=== PATIENT | female | born 2000 | race Caucasian/White ===

== ENCOUNTER 2020-04-07 16:08 | Emergency (ER) | payer BC ==
[2020-04-07] MEDS ORDERED: EPINEPHRINE INJ/PF 1 MG/1 ML AMPULE IM ONE ×2 (16:31→17:22)
[2020-04-07] MEDS ORDERED: METHYLPREDNISOLONE INJ 125 MG/2 ML SDV IV ONE (16:31)
[2020-04-07] MEDS ORDERED: DIPHENHYDRAMINE HCL 50 MG/ML VIAL IV ONE ×2 (16:32→16:59)
[2020-04-07] MEDS ORDERED: FAMOTIDINE INJ/PF 20 MG/2 ML SDV IV ONE ×3 (16:32→16:58)
--- NOTE | 2020-04-07 16:34 | ER Document Report ---
ED Medical Screen (RME) - General Chief Complaint: Allergic Reaction Stated Complaint: POSSIBLE ALLERGIC REACTION/BITE Time Seen by Provider: 04/07/20 16:31 Mode of Arrival: Ambulatory Information source: Patient Notes: 20-year-old female presented to ED for allergic reaction. She states she was bit on her right foot and she is having rash to her entire body with swelling and rash to her face. She states she is getting a little short of breath and tight in her throat. She was sent back immediately to be treated. I did put in the orders for epinephrine Solu-Medrol Pepcid and Benadryl IV. I have greeted and performed a rapid initial assessment of this patient. A comprehensive ED assessment and evaluation of the patient, analysis of test results and completion of medical decision making process will be conducted by an additional ED providers.
[2020-04-07] MEDS ORDERED: NORMAL SALINE 1000 ML 1,000 ML IV ONE (16:59)
--- NOTE | 2020-04-07 18:02 | ER Document Report ---
ED General - General Mode of Arrival: Ambulatory <OSCAR TAYLOR - Last Filed: 04/07/20 18:30> <SHELLIE PERALTA - Last Filed: 04/07/20 20:44> - General Chief Complaint: Allergic Reaction Stated Complaint: POSSIBLE ALLERGIC REACTION/BITE Time Seen by Provider: 04/07/20 16:31 - HPI Notes: Chief complaint: Allergic reaction History of present illness: 20-year-old female presented to ED for allergic reaction. The patient was outdoors at her home placing a yard flag. She was wearing open sandals and felt stinging in her foot followed by extreme itching and over the next few minutes noticed the development of a red rash. She did not see what bit her but believes this to be an insect. She specifically denies seeing a snake in the area. She has subsequently developed a generalized itchy rash and now has a sensation of tightness in her throat. Mild shortness of breath. She denies any prior history of significant allergic reactions. Patient's prior medical history is remarkable only for longstanding chronic/recurrent migraine headaches. Multiple allergies identified including metoclopramide, prochlorperazine, sulfa and cephalosporin antibiotics. (OSCAR TAYLOR) - Related Data Allergies/Adverse Reactions: metoclopramide [From Reglan] Allergy (Verified 04/07/20 16:34) prochlorperazine [From Compazine] Allergy (Verified 04/07/20 16:34) Sulfa (Sulfonamide Antibiotics) Allergy (Verified 04/07/20 16:34) Past Medical History - General Information source: Patient, Relative - Social History Smoking Status: Never Smoker Chew tobacco use (# tins/day): No Frequency of alcohol use: None Drug Abuse: None Neurological Medical History: Reports: Hx Migraine Past Surgical History: Reports: Hx Orthopedic Surgery <OSCAR TAYLOR - Last Filed: 04/07/20 18:30> - Social History Family History: Reviewed & Not Pertinent <SHELLIE PERALTA - Last Filed: 04/07/20 20:44> Review of Systems <OSCAR TAYLOR - Last Filed: 04/07/20 18:30> - Review of Systems Notes: Constitutional: Negative for fever. HENT: Negative for sore throat. Eyes: Negative for visual changes. Cardiovascular: Negative for chest pain. Respiratory: As per HPI. Gastrointestinal: Negative for abdominal pain, vomiting or diarrhea. Genitourinary: Negative for dysuria. Musculoskeletal: Negative for back pain. Skin: As per HPI. Neurological: Negative for headaches, weakness or numbness. 10 point ROS negative except as marked above and in HPI. (OSCAR TAYLOR) Physical Exam <OSCAR TAYLRO - Last Filed: 04/07/20 18:30> - Vital signs Vitals: Temp Pulse BP Pulse Ox 98.3 F 73 126/78 H 100 04/07/20 16:29 04/07/20 16:29 04/07/20 16:29 04/07/20 16:29 - Notes Notes: GENERAL: Slender female approximately stated age who appears mildly tremulous and anxious. SKIN: Patient has a 3.5 x 5.0 cm well demarcated area of erythema over the dorsum of the right foot. I do not see any breaks in the skin. Patient complains of this area is extremely itchy. She has a faint generalized urticarial rash over the entire body. HEAD: Normocephalic atraumatic. EYES: PERRLA. EOMI. Conjunctivae and sclerae clear. EARS: CANALS AND TMS CLEAR. NOSE: CLEAR. Patient is noted to have some erythema over the tip of her nose with some mild soft tissue swelling here as well. MOUTH: Moist mucosa. No swelling of lips. No swelling of the tongue. Good dentition. No stridor or edema. No drooling. Throat: No swelling of the uvula. Handling secretions normally. No hoarseness noted. NECK: Supple. No masses or thyromegaly. No adenopathy. Carotids 2+ without bruits. No JVD. BACK: Symmetrical without tenderness. CHEST: Respirations unlabored. Breath sounds clear and symmetrical. HEART: Regular rhythm. No murmur gallop or rub. ABDOMEN: Soft nontender without masses, organomegaly or rebound. Bowel sounds normally active. No bruits. GENITALIA: Deferred. EXTREMITIES: 1+ edema right pretibial area. No edema. No calf tenderness. Cap refill less than 1.5 seconds. Dorsalis pedis and posterior tibial pulses 3+ and symmetrical. NEUROLOGICAL: GCS 15. Alert and oriented x3. Fluent speech. Cranial nerves II through XII intact. Sensorimotor and cerebellar normal. Normal tone. PSYCHIATRIC: Appropriate affect. (OSCAR TAYLOR) Course <OSCAR TAYLOR - Last Filed: 04/07/20 18:30> <SHELLIE PERALTA - Last Filed: 04/07/20 20:44> - Re-evaluation Re-evalutation: 04/07/20 18:30 Patient was placed on cardiac monitoring given low-flow supplemental oxygen along with bolus of normal saline IV. She received IM epinephrine x2 at 30- minute intervals. She also received IV Solu-Medrol, IV Benadryl and IV Pepcid. Her rash is gradually shown improvement and her sensation of tightness in the throat and anxiety have subsided. She still has some redness over the dorsum of the foot at the site of the insect bite. I believe the patient will require a long period of observation in the emergency department. Care of this patient is turned over to Dr. Brandin Philippe at 1845 hrs. with final disposition pending. (OSCAR TAYLOR) 04/07/20 19:13 Patient was actually signed out to Dr. Shellie Peralta, not Dr. Alcantar, patient is rechecked at this time, still has an urticarial lesion on the dorsal aspect of her right foot, no other hives are noted. No difficulty breathing, no nausea, no vomiting, no difficulty swallowing. Patient will be observed for 3 hours after receiving the last dose of epinephrine and if she is still asymptomatic will be discharged home. 04/07/20 20:41 Patient rechecked again, persistent unchanged urticarial lesion to the dorsal aspect of the right foot, no foreign body noted. No other urticarial lesions noted on her body, no respiratory distress, lungs are clear. Patient will be discharged to home, given prescription for EpiPen, counseled on use of Benadryl and Pepcid. (SHELLIE PERALTA) - Vital Signs Vital signs: Temp Pulse Resp BP Pulse Ox 98.3 F 73 16 136/75 H 100 04/07/20 16:29 04/07/20 16:29 04/07/20 20:01 04/07/20 20:01 04/07/20 20:01 Critical Care Note - Critical Care Note Total time excluding time spent on procedures (mins): 35 - Treatment for anaphylaxis including IV, O2, monitor, IV normal saline bolus, IM epinephrine, IV H1 and H2 zander and IV Solu-Medrol. <OSCAR TAYLOR - Last Filed: 04/07/20 18:30> Discharge <OSCAR TAYLOR - Last Filed: 04/07/20 18:30> <NAISHELLIE - Last Filed: 04/07/20 20:44> - Discharge Clinical Impression: Anaphylactic reaction Qualifiers: Encounter type: initial encounter Qualified Code(s): T78.2XXA - Anaphylactic shock, unspecified, initial encounter Condition: Stable Disposition: HOME, SELF-CARE Additional Instructions: Acute Allergic Reaction Your symptoms are due to an allergic reaction. Allergy can cause hives, swelling of the hands, feet, and face, hoarseness, and difficulty swallowing or breathing. It may be due to exposure to medication, animal dander, foods, infection, or insect bites. Medication is a common cause, even when prior use of this same medication caused no problems. Acute treatment may include adrenalin and antihistamines. Usually, the specific allergic agent can't be identified unless repeated episodes occur. Home treatment includes the following: (1) Stop any suspicious medications. This will be discussed with you. (2) Oral antihistamines for the next four to five days. Example, diphenhydramine (Benadryl) 1-2 tab I would really enjoy this and is a lot more if you are wearing your doctors to start this at the same time lets every four hours. (3) You may also use cimetidine (Tagamet), or famotidine (Pepcid) every four hours if diphenhydramine is not controlling itching and hives. (4) Avoid aspirin until the hives completely disappear. (5) Avoid hot baths or showers until the hives are completely gone. Call the doctor if faintness, difficulty swallowing, tightness in the chest, or wheezing occurs. Prescriptions: Epinephrine [Epipen] 0.3 mg IJ ONCE PRN #1 auto.injct PRN Reason:
[2020-04-07 21:01] VITALS: BP 125/58
== END 2020-04-07 21:02 | disposition home or self-care (01) ==
LOC: ER 16:08
DX: T78.2XXA Anaphylactic shock, unspecified, initial encounter (principal); X58.XXXA Exposure to other specified factors, initial encounter; S90.869A Insect bite (nonvenomous), unspecified foot, initial encounter; W57.XXXA Bitten or stung by nonvenomous insect and other nonvenomous arthropods, initial encounter; L50.9 Urticaria, unspecified; Z88.8 Allergy status to other drugs, medicaments and biological substances; Z88.2 Allergy status to sulfonamides
CPT/HCPCS: 96376; 99284; 96372; 96361; 96374; 96375; J1200; J0171; J2930; J7030; S0028

== ENCOUNTER 2020-09-10 12:04 | Emergency (ER) | payer BC ==
[2020-09-10 13:31] LABS: ABSOLUTE LYMPHOCYTES (AUTO) 1.6 10^3/uL (0.5-4.7); ABSOLUTE MONOCYTES (AUTO) 0.5 10^3/uL (0.1-1.4); ABSOLUTE NEUT (AUTO) 5.2 10^3/uL (1.7-8.2); BASOPHILS % (AUTO) 0.5 % (0-2); EOSINOPHILS % (AUTO) 0.5 % (0-6); HEMATOCRIT 44.2 % (36.0-47.0); HEMOGLOBIN 15.1 g/dL (12.0-15.5); LYMPHOCYTES % (AUTO) 21.8 % (13-45); MEAN CORPUSCULAR HEMOGLOBIN 32.4 pg (27.0-33.4); MEAN CORPUSCULAR HGB CONC 34.1 g/dL (32.0-36.0); MEAN CORPUSCULAR VOLUME 95 fl (80-97); MONOCYTES % (AUTO) 6.8 % (3-13); PLATELET COUNT 308 10^3/uL (150-450); RED BLOOD COUNT 4.65 10^6/uL (3.72-5.28); RED CELL DISTRIBUTION WIDTH 12.4 % (11.5-14.0); SEGMENTED NEUTROPHILS % (AUTO) 70.4 % (42-78); TOTAL CELLS COUNTED % (AUTO) 100 %; WHITE BLOOD COUNT 7.4 10^3/uL (4.0-10.5)
[2020-09-10 13:46] LABS: APPEARANCE,URINE CLOUDY; BILIRUBIN,URINE NEGATIVE (NEGATIVE); COLOR,URINE AMBER; GLUCOSE, URINE NEGATIVE (NEGATIVE); KETONES,URINE 80 mg/dL (NEGATIVE); LEUKOCYTE ESTERASE,URINE NEGATIVE (NEGATIVE); NITRITE,URINE NEGATIVE (NEGATIVE); PROTEIN,URINE 30 mg/dL (NEGATIVE); URINE SPECIFIC GRAVITY 1.029; UROBILINOGEN,URINE NEGATIVE mg/dL (<2.0)
[2020-09-10 13:51] LABS: ALBUMIN 4.7 g/dL (3.5-5.0); ALKALINE PHOSPHATASE 72 U/L (38-126); ANION GAP 10 (5-19); ASPARTATE AMINO TRANSFERASE 21 U/L (14-36); BILIRUBIN,DIRECT 0.1 mg/dL (0.0-0.4); BILIRUBIN,TOTAL 1.6 mg/dL (0.2-1.3); BLOOD UREA NITROGEN 9 mg/dL (7-20); CALCIUM 9.6 mg/dL (8.4-10.2); CARBON DIOXIDE 27 mmol/L (22-30); CHLORIDE 102 mmol/L (98-107); GLUCOSE 86 mg/dL (75-110); TOTAL PROTEIN 7.3 g/dL (6.3-8.2)
[2020-09-10] MEDS ORDERED: ONDANSETRON HCL INJ/PF 4 MG/2 ML SDV IV ONE (14:39)
[2020-09-10] MEDS ORDERED: MORPHINE SULFATE 10 MG/ML INJ IV ONE (14:39)
--- NOTE | 2020-09-10 14:43 | ER Document Report ---
ED GI/ - General Chief Complaint: Abdominal Pain Stated Complaint: NAUSEA,VOMITING,DIARRHEA Time Seen by Provider: 09/10/20 13:37 Notes: CHIEF COMPLAINT: Abdominal pain, vomiting HPI: 20-year-old female presenting to the emergency department complaining of mid abdominal pain with vomiting that began yesterday. Hurts to walk hurts to bend at the waist. Patient reports the pain seems to be more in the epigastric region but does also present in the periumbilical region. No prior history of similar discomfort. No history of abdominal surgeries. No dysuria. No fever. Has not had vomiting today. ROS: See HPI - all other systems were reviewed and are otherwise negative Constitutional: no fever Eyes: no drainage, no blurred vision ENT: no runny nose, no sore throat Cardiovascular: no chest pain Resp: no SOB, no cough GI: + vomiting, no diarrhea, + abdominal pain : no dysuria Integumentary: no rash Allergy: no hives Musculoskeletal: no extremity pain or swelling Neurological: no numbness/tingling, no weakness MEDICATIONS: I agree with the patient medications as charted by the RN. ALLERGIES: I agree with the allergies as charted by the RN. PAST MEDICAL HISTORY/PAST SURGICAL HISTORY: Reviewed and agree as charted by RN. SOCIAL HISTORY: Reviewed and agree as charted by RN. FAMILY HISTORY: No significant familial comorbid conditions directly related to patient complaint EXAM: Reviewed vital signs as charted by RN. CONSTITUTIONAL: Alert and oriented and responds appropriately to questions. Well-appearing; well-nourished HEAD: Normocephalic; atraumatic EYES: PERRL; Conjunctivae clear, sclerae non-icteric ENT: normal nose; no rhinorrhea; moist mucous membranes; pharynx without lesions noted, no uvula edema or deviation, no tonsillar hypertrophy, phonation normal NECK: Supple without meningismus; non-tender; no cervical lymphadenopathy, no masses CARD: RRR; no murmurs, no clicks, no rubs, no gallops; symmetric distal pulses RESP: Normal chest excursion without splinting or tachypnea; breath sounds clear and equal bilaterally; no wheezes, no rhonchi, no rales, pulse oximetry 98% on room air not hypoxic ABD/GI: Normal bowel sounds; non-distended; soft, no tenderness in the right upper quadrant on palpation. Moderate tenderness in the epigastric region on palpation mild tenderness around the periumbilical region on palpation no specific tenderness over McBurney's point on palpation, no rebound, no guarding; no palpable organomegaly or masses. BACK: The back appears normal and is non-tender to palpation, there is no CVA tenderness EXT: Normal ROM in all joints; non-tender to palpation; no cyanosis, no effusions, no edema SKIN: Normal color for age and race; warm; dry; good turgor; no acute lesions noted NEURO: Moves all extremities equally; Motor and sensory function intact PSYCH: The patient's mood and manner are appropriate. Grooming and personal hygiene are appropriate. MDM: 20-year-old female with periumbilical and epigastric abdominal pain today. No specific tenderness in the right upper quadrant. Initial screening labs were negative, will obtain CT imaging to evaluate for appendicitis, cholecystitis or other surgical or infectious processes. She is not concerned about Covid The patient was evaluated during the global COVID-19 pandemic and that diagnosis was suspected/considered upon their initial presentation. Their evaluation, treatment and testing was consistent with current guidelines for patients who present with complaints or symptoms that may be related to COVID-19 - Related Data Allergies/Adverse Reactions: metoclopramide [From Reglan] Allergy (Verified 04/07/20 16:34) prochlorperazine [From Compazine] Allergy (Verified 04/07/20 16:34) Sulfa (Sulfonamide Antibiotics) Allergy (Verified 04/07/20 16:34) Home Medications: tizanidine, trazodone, magnesium, vitamins, amivog Past Medical History - Social History Smoking Status: Never Smoker Family History: Reviewed & Not Pertinent Neurological Medical History: Reports: Hx Migraine Past Surgical History: Reports: Hx Orthopedic Surgery Physical Exam - Vital signs Vitals: Temp Pulse Resp BP Pulse Ox 98.8 F 86 18 136/70 H 98 09/10/20 12:17 09/10/20 12:17 09/10/20 12:17 09/10/20 12:17 09/10/20 12:17 Course - Re-evaluation Re-evalutation: 09/10/20 17:55 Patient is comfortable at this time. I discussed evaluation with her at length. This is been a progressive issue not a sudden onset to suggest torsion. She has a 4 cm left ovarian cyst. We will have her follow-up with [facility] and she does have a locally but asked that we do provide the number for our supervisor home restoration service. We did discuss torsion precautions. - Vital Signs Vital signs: Temp Pulse Resp BP Pulse Ox 98.8 F 86 18 136/70 H 98 09/10/20 12:17 09/10/20 12:17 09/10/20 12:17 09/10/20 12:17 09/10/20 12:17 - Laboratory Results Result Diagrams: 09/10/20 13:09 09/10/20 13:09 Laboratory Results Interpreted: 09/10/20 09/10/20 13:09 13:09 Total Bilirubin 1.6 H Urine Protein 30 H Urine Ketones 80 H Urine Blood LARGE H Urine Ascorbic Acid 40 H Critical Laboratory Results Reviewed: No Critical Results - Radiology Results Critical Radiology Results Reviewed: No Critical Results Discharge - Discharge Clinical Impression: Abdominal pain, lower, Ovarian cyst, left Condition: Stable Disposition: HOME, SELF-CARE Instructions: Ovarian Cyst ([facility]) Additional Instructions: It was noted on your imaging today that you have a 4 cm left ovarian cyst. Please follow this closely with [facility]IDENT[facility] PROGRAM MANAGER for further evaluation and management. If you have sudden onset of left lower quadrant pain that is unrelenting please return for reevaluation as this may suggest that the ovary is twisting. Pain medication as prescribed. Zofran for nausea Prescriptions: Diclofenac Sodium [Voltaren 50 Mg Tablet.] 50 mg PO BID #20 tablet.dr Ondansetron [Zofran Odt 4 mg Tablet] 1 - 2 tab PO Q4H PRN #15 tab.rapdis PRN Reason: For Nausea/Vomiting Referrals: NISHI DANIEL MD [ACTIVE STAFF] - Follow up as needed
--- NOTE | 2020-09-10 17:43 | RADIOLOGY REPORT (SQ) ---
EXAM DESCRIPTION: CT ABD/PELVIS WITH IV ORAL IMAGES COMPLETED DATE/TIME: 09/10/2020 5:25 pm REASON FOR STUDY: periumbilical pain COMPARISON: None. TECHNIQUE: CT scan of the abdomen and pelvis performed using helical scanning technique with dynamic intravenous contrast injection. Oral contrast. Images reviewed with lung, soft tissue, and bone win dows. Reconstructed coronal and sagittal MPR images reviewed. Delayed images for evaluation of the ur inary system also acquired. All images stored on PACS. All CT scanners at this facility use dose modulation, iterative reconstruction, and/or weight based d osing when appropriate to reduce radiation dose to as low as reasonably achievable (ALARA). [facility]: Dose Right [facility]: CareDose [facility]: Dose Right [facility]: Teradose 4D [facility]: SupportBee CONTRAST TYPE AND DOSE: contrast/concentration: Isovue 350.00 mmol/ml; Total Contrast Delivered: 73. 0 ml; Total Saline Delivered: 23.7 ml RENAL FUNCTION: BUN 9 creatinine 0.74 RADIATION DOSE: CT Rad equipment meets quality standard of care and radiation dose reduction techniq ues were employed. CTDIvol: 5.5 - 6.5 mGy. DLP: 697 mGy-cm.. LIMITATIONS: None. FINDINGS: LOWER CHEST: No significant findings. No nodules or infiltrates. LIVER: Normal size. No masses. No dilated ducts. SPLEEN: Normal size. No focal lesions. PANCREAS: No masses. No significant calcifications. No adjacent inflammation or peripancreatic fluid collections. Pancreatic duct not dilated. GALLBLADDER: No identified stones by CT criteria. No inflammatory changes to suggest cholecystitis. ADRENAL GLANDS: No significant masses or asymmetry. RIGHT KIDNEY AND URETER: No solid masses. No significant calcifications. No hydronephrosis or hyd roureter. LEFT KIDNEY AND URETER: No solid masses. No significant calcifications. No hydronephrosis or hydr oureter. AORTA AND VESSELS: No aneurysm. No dissection. Renal arteries, SMA, celiac without stenosis. RETROPERITONEUM: No retroperitoneal adenopathy, hemorrhage or masses. BOWEL AND PERITONEAL CAVITY: No masses or inflammatory changes. No free fluid or peritoneal masses. APPENDIX: Not identified. PELVIS: There is a 4 cm left ovarian cyst. ABDOMINAL WALL: Umbilical hardware is present with no evidence of infection. BONES: No significant or acute findings. OTHER: No other significant finding. IMPRESSION: 1. No acute findings in the abdomen or pelvis. 2. 4 cm left ovarian cyst that is almost certainly benign. No additional imaging is required for th is. 3. Umbilical hardware is present with no evidence of infection. TECHNICAL DOCUMENTATION: JOB ID: [id number] Quality ID # [id number]: Final reports with documentation of one or more dose reduction techniques (e.g., Au tomated exposure control, adjustment of the mA and/or kV according to patient size, use of iterative reconstruction technique) 2010 [employer]- All Rights Reserved Reading location - IP/workstation name: [email or web address]
[2020-09-10 18:07] VITALS: BP 124/62
== END 2020-09-10 18:08 | disposition home or self-care (01) ==
LOC: ER 12:04
DX: N83.202 Unspecified ovarian cyst, left side (principal); R10.33 Periumbilical pain; R10.13 Epigastric pain; R10.816 Epigastric abdominal tenderness; R10.815 Periumbilic abdominal tenderness; Z79.899 Other long term (current) drug therapy; Z20.822 Contact with and (suspected) exposure to COVID-19; Z88.8 Allergy status to other drugs, medicaments and biological substances; Z88.2 Allergy status to sulfonamides
CPT/HCPCS: 99285; 96374; 96375; 36415; 83690; 85025; 81025; 80053; 81001; 74177; J2270; J2405